=== PATIENT | female | born 1965 | race Caucasian/White ===

== ENCOUNTER 2021-06-19 17:35 | Emergency (ER) | payer OTHER ==
[~2021-06-19] VITALS: Ht 160 cm; Wt 82.6 kg
[2021-06-19 18:00] VITALS: BP 175/77
--- NOTE | 2021-06-19 18:23 | NUR ---
PT AMBULATED TO BED 8 ACCOMPANIED BY FAMILY.
--- NOTE | 2021-06-19 18:53 | NUR ---
55 YO F BIB C/O MID CHEST PAIN X 3 DAYS AND 6/10 LUQ ABDOMINAL PAIN X 1 MONTH. ALSO COMPLAINS OF NAUSEA, DENIES VOMITING. LBM YESTERDAY, PT REPORTS SMALL HARD STOOLS. IN ED, VSS. ABDOMEN SOFT NONTENDER. PT CHANGED TO PT GOWN. ERMD MADE AWARE OF PT STATUS. BLOOD SUGAR 173 AT THIS TIME. PMH: DM, HTN, R MASTECTOMY MEDS: METOPTOLOL, SIMVASTATIN, ASPIRIN, METFORMIN, INSULIN NKA
[2021-06-19] MEDS ORDERED: ALUMINUM HYD/MAG/SIMETHICONE 30 ML UDC PO ONE (19:20)
[2021-06-19] MEDS ORDERED: FAMOTIDINE 20 MG/2 ML VIAL IVP ONE (19:20)
--- NOTE | 2021-06-19 19:24 | NUR ---
REPORT GIVEN TO LILA GIVENS. ALL CARE TRANSFERRED AT THIS TIME.
[2021-06-19 19:39] LABS: BASOPHILS # (AUTO) 0.1 K/uL (0.00-0.22); BASOPHILS % (AUTO) 0.9 % (0.0-2.0); EOSINOPHILS % (AUTO) 0.4 % (0.0-4.0); HEMATOCRIT 40.1 % (36-48); HEMOGLOBIN 13.4 g/dL (12.0-16.0); LYMPHOCYTES # (AUTO) 1.6 K/uL (2.5-16.5); LYMPHOCYTES % (AUTO) 16.4 % (20.5-51.1); MEAN CORPUSCULAR HEMOGLOBIN 29 pg (27-31); MEAN CORPUSCULAR HGB CONC 33 g/dL (33-37); MEAN CORPUSCULAR VOLUME 87.2 fL (80-94); MONOCYTES # (AUTO) 0.6 K/uL (0.8-1.0); MONOCYTES % (AUTO) 6.4 % (1.7-9.3); NEUTROPHILS # (AUTO) 7.3 K/uL (1.8-7.7); NEUTROPHILS % (AUTO) 75.9 % (42.2-75.2); PLATELET COUNT (AUTO) 248 K/uL (140-450); RED CELL DISTRIBUTION WIDTH 13.2 % (11.6-13.7); WHITE BLOOD COUNT (AUTO) 9.6 K/uL (4.8-10.8)
[2021-06-19 20:05] LABS: ALBUMIN 3.9 g/dL (3.4-5.0); CARBON DIOXIDE 24.3 mmol/L (21-32); POTASSIUM 4.3 mmol/L (3.5-5.1); TOTAL BILIRUBIN 0.4 mg/dL (0.0-1.0)
[2021-06-19 20:07] LABS: BILIRUBIN,URINE NEGATIVE (NEGATIVE); BLOOD, URINE NEGATIVE (NEGATIVE); COLOR,URINE YELLOW (YELLOW); LEUKOCYTE ESTERASE ,URINE 1+ (NEGATIVE); NITRITE, URINE NEGATIVE (NEGATIVE); PH,URINE 5.5 (5.0-9.0); UGLUCOSE NEGATIVE (NEGATIVE)
[2021-06-19 20:10] LABS: APPEARANCE,URINE HAZY (CLEAR)
[2021-06-19] MEDS ORDERED: FAMOTIDINE 20 MG/2 ML VIAL ONE (20:30)
[2021-06-19] MEDS ORDERED: ALUMINUM HYD/MAG/SIMETHICONE 30 ML UDC ONE (20:30)
[2021-06-19] MEDS ORDERED: FAMOTIDINE 20 MG TAB ONE (20:39)
[2021-06-19] MEDS ORDERED: FAMOTIDINE 20 MG TAB PO ONE (20:40)
--- NOTE | 2021-06-19 20:42 | NUR ---
PT IS IN STABLE CONDITION, STATED THAT SHE DOES NOT HAVE CHEST PAIN. PT HAS A COMPLAINT OF ESOPHAGEAL PAIN 5/10. SHE FEELS HER MOUTH IS DRY AND EPIGASTIRIC PAIN 10/10 WHEN IT DOES HURT. PT STATED SHE FEELS OK AT THIS TIME. ERMD UPDATED, ORDERS CARRIED OUT.
[2021-06-19] MEDS ORDERED: SUCR1TAB35 PO (22:03)
[2021-06-19] MEDS ORDERED: LORA-476 PO ×2 (22:03→22:18)
[2021-06-19] MEDS ORDERED: OMEP20EC11 PO (22:03)
[2021-06-19 22:19] LABS: RBC,URINE NONE SEEN /HPF (0-5)
[2021-06-19 22:27] VITALS: BP 175/77
--- NOTE | 2021-06-19 22:27 | NUR ---
Patient discharged with v/s stable. Written and verbal after care instructions given and explained. Patient alert, oriented and verbalized understanding of instructions. Ambulatory with steady gait. All questions addressed prior to discharge. ID band removed. Patient advised to follow up with PMD. Rx of ATIVAN,PRILOSEC, CARAFATE given. Patient educated on indication of medication including possible reaction and side effects. Opportunity to ask questions provided and answered.
== END 2021-06-19 22:27 | disposition home or self-care (01) ==
LOC: MED 17:35
DX: R10.10 Upper abdominal pain, unspecified (principal); R07.0 Pain in throat; K59.00 Constipation, unspecified; F41.1 Generalized anxiety disorder; E11.9 Type 2 diabetes mellitus without complications; I10 Essential (primary) hypertension
CPT/HCPCS: 36415; 71045; 80053; 81001; 83690; 84484; 85025; 87086; 93005; 99285; J3490